=== PATIENT | female | born 1985 | race Caucasian/White ===

== ENCOUNTER 2022-02-11 10:47 | Outpatient (CLI) | payer OTHER, SELFPAY ==
--- OUTSIDE RECORDS SUMMARY | 2022-02-11 11:00 | XMS_ITS | Clinical Summary ---
:1985 Author Organization [employer] [facility] [place] [address] Care Team Providers Name Role Phone Pcp, No Unavailable Unavailable Pcp, No Primary Care Provider Unavailable Allergies No known active allergies Medications Medication Sig Dispensed Refills Start Date End Date Status NITRO-BID 2 % ointment 0 10/29/2016 Active Take 1 tablet by 0 07/31/2018 Ac tive Padzluvg-Ed-Leu-Fe-FA mouth once daily. ( VITAMIN) tab tablet Active Problems Problem Noted Date Fatigue 06/22/2015 Headache(784.0) 06/22/2015 Family History Medical History Relation Name Comments Good Health Brother Unknown Father Cancer Maternal Grandmother ovarian can cer age uncertain Good Health Mother Thyroid Disease Mother hypothyroidism Cancer Other Maternal great ovarian cancer grandma Good Health Sister Relation Name Status Comments Brother Father Maternal Grandmother Mother Other Maternal great grandma Sister Social History Tobacco Use Types Packs/Day Years Used Date Never Smoker Smokeless Tobacco: Never Used Tobacco Cessation: Counseling Given: Yes Alcohol Use Standard Drinks/Week Comments No 0 (1 standard drink = 0.6 oz pure alcoho l) Sex Assigned at Date Recorded Not on file Obstetrics History Para Term AB IAB SAB Ectopic Multiple Living Live Births 0 0 0 0 0 0 0 0 0 0 Last Filed Vital Signs Vital Sign Reading Time Taken Comments Blood Pressure 104/65 07/31/2018 2:19 PM CDT Pulse 73 07/31/2018 2:19 PM CDT Temperature 36.6 ??C (97.8 ??F) 05/08/2018 8:14 AM FRONT SIGHT ATTACHER Respiratory Rate - - Oxygen Saturation 98% 07/31/2018 2:19 PM CDT Inhaled Oxygen Concentration - - Weight 67.1 kg (148 lb) 07/31/2018 2:19 PM CDT Height 164.2 cm (5' 4.65) 05/08/2018 8:14 AM FRONT SIGHT ATTACHER Body Mass Index 24.9 05/08/2018 8:14 AM FRONT SIGHT ATTACHER Plan of Treatment Upcoming Encounters Date Type Specialty Care Team Description 03/27/2022 Office Visit Barrie Shabazz MD [address] [place] [place] [id number] (Wo rk) Health Maintenance Due Date Last Done Comments COVID-19 vaccine series (#1) 02/06/1986 Tdap 1996 HIV for age 15-65 2000 Hepatitis C screening for age 18-79 08/08/2003 Tetanus booster 2005 BMI (ht and wt on same day) for age 0305/09/2019 05/08/2018, 01/06/2017, 18+ 06/22/2015 Depression screening for age 12+ 05/09/2019 05/08/2018, Influenza for age 9-49 11/08/2021 Pap test for age 21-65 04/27/2023 04/27/2020, 04/27/2020 Results Not on filefrom Last 3 Months Insurance Payer Benefit Plan / Subscriber ID Effective Dates Phone Addre ss Type Group [employer] [place] [id number] 2018-Present [employer]/ [address] [place] [address] Care Teams Liability Claims Representative Relationship Specialty Start Date End Date Pcp, No PCP - General 03/07/18 . Pcp, No 06/20/15 .
[2022-02-11 13:47] LABS: Basophils Percent Auto 0.6 % (0.0-3.0); Hematocrit 38.8 % (33.0-51.0); Hemoglobin* 12.8 gm/dL (12.0-16.0); Immature Granulocytes Pct Auto 0.2 %; Lymphocytes Percent Auto 34.7 % (20-44); Mean Corpuscular HGB Conc 33 gm/dL (32-36); Mean Corpuscular Hemoglobin 29 pg (26-34); Mean Corpuscular Volume 89 fL (80-100); Neutrophils Percent Auto 50.5 % (42.0-72.0); Platelet Count* 228 K/uL (140-440); RDW Coefficient of Variation % 11.8 % (11.5-15.5); Red Blood Count 4.35 m/uL (4.00-5.20)
[2022-02-11 13:58] LABS: Chloride* 106 mmol/L (96-114); Potassium* 4.7 mmol/L (3.6-5.1); Sodium* 140 mmol/L (135-149)
[2022-02-11 13:59] LABS: Slide Review Reflex No; White Blood Count* 5.44 K/uL (4.50-11.00)
[2022-02-11 14:00] LABS: Creatinine* 0.6 mg/dL (0.5-1.5); Estimated Glomerular Filt Rate 119 ml/min
[2022-02-11 14:01] LABS: Blood Urea Nitrogen* 16 mg/dL (5-24); Calcium* 9.4 mg/dL (8.4-10.6); Carbon Dioxide* 28 mmol/L (20-32); Creatine Kinase* 35 U/L (41-117); Glucose* 81 mg/dL (60-115)
[2022-02-11 14:27] LABS: Erythrocyte SedimentationRate* 25 mm/hr (2-20)
[2022-02-12 22:16] LABS: Rheumatoid Factor <10 IU/mL (0-14)
[2022-02-13 12:13] LABS: Anti-Nuclear Ab(ANA)IgG ELISA None Detected (None Detected)
== END 2022-02-11 10:48 | disposition home or self-care (01) ==
PROVIDERS: PCP Family Medicine; Visit Provider Family Medicine
DX: M25.50 Pain in unspecified joint (principal)
CPT/HCPCS: 80048; 82550; 84443; 85025; 85651; 86039; 86431

== ENCOUNTER 2022-03-12 10:26 | Outpatient (CLI) | payer OTHER, SELFPAY ==
[2022-03-12 14:30] LABS: Uric Acid* 4.7 mg/dL (2.2-8.4)
[2022-03-12 14:33] LABS: C Reactive Protein* 0.7 mg/dL (0.5-1.0)
[2022-03-14 22:54] LABS: Parvovirus B19 Antibody IgM 1.55 IV (<=0.90)
== END 2022-03-12 10:27 | disposition home or self-care (01) ==
PROVIDERS: PCP Family Medicine; Visit Provider Family Medicine
DX: M25.50 Pain in unspecified joint (principal)
CPT/HCPCS: 84550; 86140; 86200; 86618; 86747

== ENCOUNTER 2022-09-13 11:58 | Outpatient (RCR) | payer OTHER, SELFPAY ==
--- NOTE | 2022-05-28 10:29 | PT.OPDNX ---
PT [facility] Daily [facility] PT [facility] Daily Note Start: 01/21/22 10:29 Freq: Status: Active Protocol: Document 05/27/22 14:52 ARR (Rec: 05/27/22 16:05 ARR [id number]) E-signed By Belinda Richards DPT PT OP Daily Progress Note Visit Information Note Type Daily Note,Recert/Progress Note Visit Number 11 Insurance Information Insurance Name Other; See Comments Insurance Information/Comments Juany Sandy POC: 01/21/22-05/27/22 x 11 visits NEW POC x 7 visits (Total 18 visits) Medical Diagnosis K59.09 other constipation M62.89 other specified disorders of muscle Treating Diagnosis K59.00 Constipation, unspecified Abdominal pain (R10.9) R10.2 Pelvic and perineal pain Referring MD Max Heath MD ([facility]) Subjective Subjective -Overall doing well. Between 4 -5 type. Hasn't changed anything in diet. Since last session it has been this stool type. Going 1-2x/day. Hasn't had to strain as hard with these mvmt -Colonoscopy 05/31/22 Home Exercise Home Exercise Comments OTHER: -Colon massage 01/21 -Constipation handout (Focus on hydration 1 C / bowel routine / chewing food / eating breakfast) 01/21 -Defecation mechanics and technique 01/21 GOALS: - Continue with hydration - Slow down eating and CHEW your food - Abdominal massage - 5 minutes of pumping time dedicated to relaxation and deep breathing ? find music or podcast - Meal prep for dinners - Implementing belly big belly hard. Defecation mechanics for bowel movement - Exercises: 5-7x/week, 1x/day -Emergency Care Tech referral Access Code: [email or web address] URL: [email or web address]/ Date: 02/20/2022 Prepared by: Belinda Richards Exercises Sidelying Thoracic and Shoulder Rotation - 1 x daily - 5-7 x weekly - 6-8 reps Sidelying Diaphragmatic Breathing - 1 x daily - 5-7 x weekly - 6-8 reps Supine Piriformis Stretch - 1 x daily - 5-7 x weekly - 2-3 reps - 30 sec hold Objective Other/Pertinent Objective INTERNAL EXAMINATION INTRAVAGINAL 01.30: -Sensation: intact to touch -Perineum: elevated (concave) -Lifting contraction: slight lift -Bulge: nil Inc'd tone with TTP greatest over PB tissue -Introidus: -Layer 1: bulbospongiousus / superficial transverse perineal -Layer 2: External urtethral sphincter / deep transverse perineal / sphincter urethrovaginalis Strength ( R / C / L): -Power (MMT): 2 -Endurance: 5 -Reps:2 -Fast twitch: not assessed -Relaxation of PFM after quick contractions: delayed -Brink score: squeeze pressure 3, muscle contraction duration 4, lift 3. With contraction noting greater squeeze vs lift of PFM INTRA-RECTAL -EAS good squeeze -Slight restrictions in tissue lower 1/2 of clock position -No significant pain -With relaxation for bowel simulation noting PFC/EAS contraction vs relaxation Patient Instructed in Risks/Benefits Yes Manual Therapy Techniques Manual Therapy Minutes (minutes) 30 Manual Therapy Techniques MT: indicated for improving joint mobility, reducing tissue irritability, and improving range of motion. supine intravaginal: Hooklying intravaginal w/ consent: -STM layer 3 focused on PC including STM along mm belly from origin at posterior PS to distal attachment. Also prolonged holds at mid portion of muscle belly. -Gentle posterior PF glides with inferior glide to LA muscles -Introidal stretching with deep breathing -Intravaginal finger completing STM to scar tissue/ layers 1-2 while external thumb completing fascial mobilization to posterior triangle -Gentle rolling over scar tissue at level of PB All with deep breathing Neuromuscular Re-Ed Neuromuscular Reeducation Minutes ( 25 minutes) Neuromuscular Reeducation Comments NMR: Indicated to facilitate improved muscle firing and postural awareness through the use of tactile cues. Intravaginal with consent: -Hooklying TA on exhale x 8 reps -Hooklying TA with bent LE fallout on exhale x 8 reps ea LE -GS x 5 reps - no glut -Bridge - low back no glut -Prone GS x 8 reps pillow -Prone GS with hip extension x 6 reps ea LE Cues for inhalation for PF relaxation Treatment Minutes Timed Code Treatment Minutes 55 Total Treatment Time 55 Billing Units Manual Therapy Units 2 Neuromuscular Reeducation Units 2 Assessment/Impression Assessment/Impression Improved pelvic floor tone overall from last session with reduced TTP but still noting overall stiffness that persists. Continued with MT techniques as noted above bilaterally with greater focus L>R with tightness greatest at PC, IC, and posterior PF at 6 oclock position. Able to initiate glut strengthening/ activation and dynamic LE mvmt with core activation. Cues throughout for form and full relaxation btw reps. Skilled PT continues to be indicated. Pt had been seen for constipation, abdominal pain, pelvic/perineal pain for 11 visits from 01/21/22 to 2022 during this episode of physical therapy. Focus of therapy on pelvic floor lengthening, deep breathing, spinal mobility/ROM, improving bowel habits, reducing straining with bowel movements , and progressing to core/glut strengthening. Interventions including therapeutic exercise , manual therapy, self-care, neuromuscular re-education. Pt at this time has not yet met all short/nursing home goals and is not independent with HEP. Skilled therapy continues to be indicated at this time to reduce straining with bowel movements, improve core/glut strength, and reduce pelvic floor muscle overactivity. Pt to benefit from continued skilled therapy at a frequency of 1x/wk for an additional 7 weeks. Timeframes below reflected in extension of plan of care for an additional 6 weeks/visits. Plan of Care Physical Therapy Goals STG (within 9 weeks) 1)Patient will demonstrate ability to utilize ?belly big, belly hard technique? while properly lengthening PFM to allow improved ease of defecation without straining. 2)Pt will report at least r0% improvement in abdominal and pelvic pain for improved ease of defecation 3)Pt will initiate HEP without increased symptoms 4) Pt will report no pelvic floor muscle pain during internal palpation to allow for improved bowel emptying. LTG (within 18 weeks) 1) Pt will report bristol Stool Scale is improved to Type 4 stool to allow for improved bowel emptying / ability to hold back stool 2) Pt will be able to initiate and complete bowel movement without pain or straining. 3)Patient will be able to fully empty bowels at least 90 % of the time. 4)Pt will report at least 80% improvement in abdominal and pelvic pain for improved ease of defecation 5) Pt will report having had no hemorrhoid or fissure in at least x 4 weeks Daily Plan of Care Comments -Abdominal visceral techniques AND intravaginal STM -Add glut strengthening to HEP and progress core/gluts as able -Glut strengthening - prone hip ext GS vs excessive PFC -Goals for diet/stool softener and abdominal massage daily
== END 2022-11-20 14:09 | disposition home or self-care (01) ==
PROVIDERS: PCP Family Medicine; Visit Provider Surgery
DX: K59.09 Other constipation (principal); M62.89 Other specified disorders of muscle; R10.9 Unspecified abdominal pain; R10.2 Pelvic and perineal pain; Z51.89 Encounter for other specified aftercare
CPT/HCPCS: 97110; 97112; 97140; 97162; 97535

== ENCOUNTER 2022-12-09 08:43 | Outpatient (CLI) | payer OTHER, SELFPAY ==
--- NOTE | 2022-12-09 09:30 | CRLHL7_ITS ---
For Patients: As a result of the Century Cures Act, medical imaging exams and procedure reports are released immediately into your electronic medical record. You may view this report before your referring provider. If you have questions, please contact your health care provider. INDICATION: Diffuse abdominal pain TECHNIQUE: Axial images were obtained from the diaphragm to the pubic symphysis. Reformats were obtained in the coronal and sagittal plane. IV Contrast: 79 cc Isovue 370 Oral Contrast: None COMPARISON: None. FINDINGS: Lower chest: Minimal nodular consolidation at the left lower lobe (series 3, image 15). Liver: Unremarkable. Normal in size and attenuation. No masses. Gallbladder and bile ducts: Unremarkable. No stones or inflammation. No biliary dilatation. Spleen: Unremarkable. Normal in size without mass. Pancreas: Unremarkable. No mass or inflammation. Adrenal glands: Unremarkable. No nodules. Kidneys: Unremarkable. No masses, stones, or hydronephrosis. Vasculature: Unremarkable. GI tract: Unremarkable. No dilated bowel or focal inflammation. Normal appendix. Pelvis: Unremarkable. Bones: Unremarkable for age. IMPRESSION: 1. No dilated loops of large or small intestine. No localized inflammation. 2. Somewhat nodular opacity within left lower lobe measuring 9 millimeters. Differential would include focal atelectasis, pulmonary nodule or even early pneumonia in the correct clinical setting. Suggest follow-up study in 3 months to assess for resolution. Please note that all CT scans at this facility use dose modulation, iterative reconstruction, and/or weight-based dosing when appropriate to reduce radiation dose to as low as reasonably achievable. Dictated by Michael Tolentino MD @ 12/09/2022 10:08:35 AM (Electronically Signed)
== END 2022-12-09 08:44 | disposition home or self-care (01) ==
PROVIDERS: PCP Family Medicine; Visit Provider Internal Medicine
DX: R10.84 Generalized abdominal pain (principal)
CPT/HCPCS: 74177; Q9967

== ENCOUNTER 2023-03-27 09:40 | Outpatient (CLI) | payer OTHER, SELFPAY ==
--- OUTSIDE RECORDS SUMMARY | 2023-03-27 09:45 | XMS_ITS | Clinical Summary ---
Author Name Unknown Organization [employer] Address [place], [place] [address] Care Team Providers Care Electric Sealing Machine Operator Name Role Phone Pcp, No Unavailable Unavailable Michael Davis MD Primary Care Provider + Allergies No known active allergies Medications Medication Sig Dispensed Refills Start Date End Date Status hydrocortisone (ANUSOL-HC SUPPOSITORY) 25 mg suppository twice a day 0 12/12/2021 Active Active Problems Problem Noted Date Diagnosed Date Fatigue 06/22/2015 Headache(784.0) 06/22/2015 Family History Medical History Relation Name Comments Good Health Brother Unknown Father Cancer Maternal Grandmother ovarian cancer age uncertain Good Health Mother Thyroid Disease Mother hypothyroidi sm Cancer Other Maternal great grandma ovarian cancer Good Health Sister Relation Name Status Comments Brother Father Maternal Grandmother Mother Other Maternal great grandma Sister Social History Tobacco Use Types Packs/Day Years Used Date Smoking Tobacco: Never Smokeless Tobacco: Never Tobacco Cessation:Counseling Given: Yes Alcohol Use Standard Drinks/Week Comments No 0 (1 standard drink = 0.6 oz pur e alcohol) PHQ-2 Answer Date Recorded PHQ-2 Score 0 05/12/2018 Social Connections Answer Date Recorded Frequency of Communication with Friends and Fami ly Not on file 03/27/2022 Sex and Gender Information Value Date Recorded Sex Assigned at Not on file Gender Identity Not on file Sexual Orientation Not on file Obstetrics History Para Term AB IAB SAB Ectopic Multiple Livin g Live Births 0 0 0 0 0 0 0 0 0 0 Last Filed Vital Signs Vital Sign Reading Time Taken Comments Blood Pressure 101/68 03/27/2022 3:01 PM CUTTER HAND Pulse 60 03/27/2022 3:01 PM CUTTER HAND Temperature 36.6 ??C (97.8 ??F) 05/08/2018 8:14 AM CS T Respiratory Rate - - Oxygen Saturation 97% 03/27/2022 3:01 PM CUTTER HAND Inhaled Oxygen Concentration - - Weight 68 kg (150 lb) 03/27/2022 3:01 PM CUTTER HAND Height 164.2 cm (5' 4.65) 05/08/2018 8:14 AM CS T Body Mass Index 25.24 05/08/2018 8:14 AM CUTTER HAND Plan of Treatment Health Maintenance Due Date Last Done Comments Tdap 1996 HIV for age 15-65 2000 Hepatitis C screening for ag e 18-79 08/08/2003 Tetanus booster 2005 BMI (ht and wt on same day) for age 18+ 05/09/2019 05/08/2018, 01/06/2017, 06/22/2015 Depression screening for age 12+ 05/09/2019 05/08/2018, 06/22/2015 COVID-19 vaccine series ( season) 2022 10/16/2021, 09/25/2021 Influenza for age 9-49 11/08/2022 Pap test for age 21-65 04/27/2023 , 04/27/2020 Pneumococcal series for age 6-64 Aged Out No longer eligible b ased on patient's age to complete this topic Care Teams Electric Sealing Machine Operator Relationship Specialty Start Date End Date Michael Davis MD [address] [place] [address] PCP - General Family Practice 03/27/22 Pcp, No . 06/20/15
--- NOTE | 2023-03-27 10:00 | CRLHL7_ITS ---
For Patients: As a result of the Century Cures Act, medical imaging exams and procedure reports are released immediately into your electronic medical record. You may view this report before your referring provider. If you have questions, please contact your health care provider. Indication: PULMONARY NODULE Technique: Noncontrast CT chest Please note that all CT scans at this facility use dose modulation, iterative reconstruction, and/or weight-based dosing when appropriate to reduce radiation dose to as low as reasonably achievable. Comparison: CT abdomen and pelvis 12/09/2022 Findings: Stable nodular density within the left lower lobe measuring 10 x 7 millimeters. No pleural effusion or pulmonary edema. No adenopathy or pneumothorax. No fracture. Breast tissue normal. Unremarkable upper abdomen. Impression: Stable morphology of the 10 millimeter nodule in the left lower lobe adjacent to the left hemidiaphragm. Follow-up CT chest in 1 year recommended. Please note that all CT scans at this facility use dose modulation, iterative reconstruction, and/or weight-based dosing when appropriate to reduce radiation dose to as low as reasonably achievable. Dictated by Michael Bustos MD @ 03/27/2023 12:31:37 PM (Electronically Signed)
== END 2023-03-27 09:41 | disposition home or self-care (01) ==
LOC: CT 09:42
PROVIDERS: PCP Family Medicine; Visit Provider Internal Medicine
DX: R91.1 Solitary pulmonary nodule (principal)
CPT/HCPCS: 71250

== ENCOUNTER 2023-10-02 08:03 | Outpatient (CLI) | payer OTHER, SELFPAY | END 2023-10-02 08:04 | disposition home or self-care (01) | PROVIDERS: PCP Family Medicine; Visit Provider Obstetrics & Gynecology | DX: Z31.41 Encounter for fertility testing (principal) | CPT/HCPCS: 82670; 83001; 83002 ==

== ENCOUNTER 2024-09-15 08:55 | Outpatient (CLI) | payer OTHER, SELFPAY ==
--- NOTE | 2024-09-15 09:15 | CRLHL7_ITS ---
For Patients: As a result of the Cures Act, medical imaging exams and procedure reports are released immediately into your electronic medical record. You may view this report before your referring provider. If you have questions, please contact your health care provider. OB ULTRASOUND INDICATION: Dating and viability. TECHNIQUE: Real time grayscale imaging of the fetus was performed. Transvaginal. LMP: 07/15/2024. TREVON by LMP: 04/21/2025. GA: 8 w, 6 d. Previous US: No. CRL: 2.3 cm. 9 w 0 d. TREVON: 04/20/2025. FHR: 167 BPM. Gestational sac: 4.3 cm. Appears within normal limits. Yolk sac: 3.0 mm. Appears within normal limits. Right ovary: 2.7 x 1.2 x 2.1 cm. Left ovary: 3.0 x 1.8 x 2.2 cm. CL. IMPRESSION: Single living intrauterine measuring 9 weeks 0 days with sonographic due date 04/20/2025. Michael Bustos M.D. Diagnostic Radiologist [email or web address]/Dictated by: Michael Bustos MD @ 09/15/2024 9:55:00 AM (Electronically Signed)
== END 2024-09-15 08:56 | disposition home or self-care (01) ==
LOC: US 08:56
PROVIDERS: PCP Family Medicine; Visit Provider Registered Nurse
DX: Z34.91 Encounter for supervision of normal pregnancy, unspecified, first trimester (principal); Z3A.09 9 weeks gestation of pregnancy
CPT/HCPCS: 76817; 83021; 86592; 86703; 86704; 86706; 86762; 86787; 86803; 86850; 87086; 87340; 87491; 87591

== ENCOUNTER 2024-11-11 06:41 | Outpatient (CLI) | payer OTHER, SELFPAY | END 2024-11-11 06:42 | disposition home or self-care (01) | LOC: AMB 11-12 09:06 | PROVIDERS: PCP Family Medicine; Visit Provider Emergency Medicine | DX: R07.89 Other chest pain (principal) | CPT/HCPCS: A0425; A0433 ==

== ENCOUNTER 2024-11-11 07:20 | Emergency (ER) | payer OTHER, SELFPAY ==
--- OUTSIDE RECORDS SUMMARY | 2024-11-11 07:22 | XMS_ITS ---
Author Organization [facility] Source Produ ction (ClinicalSummary Clone) Address Unknown Care Team Providers Care License Inspector Name Role Phone Unavailable Primary Care Physician Unavailab le Results * [UNITY] ANEUPLOIDY NIPT Performed by: [employer] Component Value Range Date Fraction 8.0% 10/06/2024 03 :07 am UT Rh(D) NIPT RhD DETECTED 10/06/2024 03:0 7 am UT 22q11.2 Microdeletion LOW RISK <1 in 10,000 10/06/2024 03:07 am UT Sex Chromosome Aneuploidy NOT DETECTED 03:07 am UT Monosomy X LOW RISK <1 in 10,000 2024 03:07 am UTC Trisomy 13 LOW RISK <1 in 10,000 2024 03:07 am UTC Trisomy 18 LOW RISK <1 in 10,000 2024 03:07 am UTC Trisomy 21 LOW RISK <1 in 10,000 2024 03:07 am UT Sex FEMALE 10/06/2024 03:0 7 am UTC Gestation FITCH 10/07/19 03:07 am UT For detailed report, see PDF See PDF 10/06/2024 03:07 am UTC 10/06/2024 03:0 7 am UT Social History Observation Value Start Date End Date
--- OUTSIDE RECORDS SUMMARY | 2024-11-11 07:22 | XMS_ITS | CCD ---
Author Name Interface, [id number] lity Address [address] [place] [address] [facility] Oncology Address [facility] [address] Reason for Visit Social History
--- OUTSIDE RECORDS SUMMARY | 2024-11-11 07:23 | XMS_ITS | Clinical Summary ---
[facility] Organization [facility] Address [address] [address] Care Team Providers Care Ore Smelter Name Role Phone Needs Pcp, Assignment Primary Care Provider Source Comments You are receiving this document as you are listed as the primary care provider,follow-up provider, or the patient has been referred to you for consultation.This is in compliance with the Medicare andMedicaid EHR Incentive Program,which states Providers who transition their patient to another setting of careor provider of care or refers their patient to another provider of care shouldprovide summary care record for each transition of care or referral. [facility] Allergies No known active allergies Medications vitamin-ferrous fumarate-folic acid (PRENATALPLUS) 27-1 MG tablet Take 1 Tablet by mouth daily. Active letrozole (FEMARA) 2.5 MG tabletIndicatio ns:Family planning Take 1 Tablet (2.5 mg) by mouth daily. Day one is the first day of red bleeding. Take letrozole days three through seven. 5 Tablet 5 Active Active Problems Problem Noted Date Diagnosed Date Encounter for artificial insemination 03/20/2024 Irritable bowel syndrome wit h both constipation and diarrhea 05/14/2016 Overview (05/14/2016): Records in scanned documents. Saw GI, had colonoscopy in 2012 - unremarkable. EGD with localized mild erythematous mucosa without bleeding. Had small bowel enteroscopy with extensive biopsies which was negative. Had hydrogen and methane breath test which was positive for hydrogen. Treated with 10 day course of rifaximin with improved sx. Resolved Problems Problem Noted Date Diagnosed Date Resolved Date Infertility, female, secondary 03/20/2024 03/20/2024 Encounters Date Type Department Care Team Description 08/13/2024 Telephone [place] [id number] Obstetrics/Gynecology [address] [place] [address] Elisa Massey MD QUESTIONS, GENERAL; Concerns from Last 3 Months Immunizations Immunization Administration Dates Next Due Influenza IIV4 (Quadrivalent) 0.5mL (20241) 08/2020 Pfizer Monovalent 12+ Purple Top 10/16/2021,09/07 Tdap 05/22/2021 Family History Medical History Relation Name Comments Unknown Father Thyroid Disorder Mother No Known Problems Brother No Known Problems Daughter Gweneviere Unknown Maternal Grandfather Cancer, Ovary Maternal Grandmother Unknown Paternal Grandfather Unknown Paternal Grandmother Kidney Disorder Sister Relation Name Status Comments Father Unknown Mother Alive Brother Alive Daughter Gweneviere Alive Maternal Grandfather Unknown Maternal Grandmother Alive Paternal Grandfather Unknown Paternal Grandmother Unknown Sister Alive Social History Tobacco Use Types Packs/Day Years Used Date Smoking Tobacco: Never Smokeless Tobacco: Never Tobacco Cessation:Counseling Given: Not Answered Alcohol Use Standard Drinks/Week Comments Not Currently 0 (1 standard drink = 0.6 oz pur e alcohol) Comments No Sex and Gender Information Value Date Recorded Sex Assigned at Not on file Legal Sex Female 2:20 PM CDT Gender Identity Not on file Sexual Orientation Not on file Occupation Industry Job Start Date Job End Date - [employer] Not on file Not on file No t on file Last Filed Vital Signs Vital Sign Reading Time Taken Comments Blood Pressure 103/75 05/21/2024 1:39 PM CDT Pulse 68 05/21/2024 1:39 PM CDT Temperature 36.8 C (98.3 F) 05/18/2024 2:35 PM CDT Respiratory Rate 16 05/18/2024 2:35 PM CDT Oxygen Saturation 98% 05/18/2024 2:35 PM CDT Inhaled Oxygen Concentration - - Weight 75.8 kg (167 lb) 05/21/2024 1:39 PM CDT Height - - Body Mass Index - - Plan of Treatment Health Maintenance Due Date Last Done Comments Cervical Cancer Screening Due 1985 Hep C Screening (Preventive Services) 1985 HIV Screening (Preventive Services) 2001 Adult Preventive Visit 08/08/2003 HepB Vaccine (1) 2004 HPV Vaccine (1 - 3-dose SCDM series) 2012 COVID-19 Vaccine (3 - 2023-2 5 season) 2023 10/16/2021, 09/25/2021 Influenza Vaccine (#1) 2024 02/12/2021 DTaP/Tdap/Td Vaccine (2 - Tdap) 05/23/2031 05/22/2021 Zoster/Shingles Vaccine (1 o f 2) 08/08/2035 HepA Vaccine Aged Out No longer eligi ble based on patient's age to complete this topic Hib Vaccine Aged Out No longer eligi ble based on patient's age to complete this topic IPV (Polio) Vaccine Aged Out No longe r eligible based on patient's age to complete this topic MCV4 Vaccine Aged Out No longer eligi ble based on patient's age to complete this topic Meningococcal B Vaccine Aged Out No l onger eligible based on patient's age to complete this topic Pneumococcal Vaccine Aged Out No long er eligible based on patient's age to complete this topic Insurance [facility] Care Teams Ore Smelter Relationship Specialty Start Date End Date Needs Pcp, [place] [address] PCP - General 04/11/16
[2024-11-11 07:24] VITALS: BP 116/76; PULSE 64; RESP 16; TEMP 36.8; O2SAT 99; BMI 29.2
--- OUTSIDE RECORDS SUMMARY | 2024-11-11 07:24 | XMS_ITS ---
Author Organization [facility] Source Produ ction (ClinicalSummary Clone) Address Unknown Care Team Providers Care Nutrition Educator Name Role Phone Unavailable Primary Care Physician Unavailab le Results * [UNITY] CARRIER SCREEN Performed by: [employer] Component Value Range Date Sickle Cell Disease/Beta-Thalassemia/Hemo globinopathies carrier screen NEGATIVE 10/12/2024 06:51 am UT Alpha-Thalassemia carrier screen NEGATIVE 10/12/2024 06:51 am UT Cystic Fibrosis carrier screen NEGATIVE 10/12/2024 06:51 am UT Spinal Muscular Atrophy carrier screen NEGATIVE 2 SMN1 copies, SNP not present 10/12/2024 06:51 am UT For detailed report, see PDF See PDF 10/12/2024 06:51 am UTC 10/12/2024 06:5 1 am [facility] Social History Observation Value Start Date End Date
--- OUTSIDE RECORDS SUMMARY | 2024-11-11 07:24 | XMS_ITS | Clinical Summary ---
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 Gender Identity Not on file Sexual Orientation Not on file Obstetrics History Para Term AB IAB SAB Ectopic Multiple Livin g Live Births 0 0 0 0 0 0 0 0 0 0 Last Filed Vital Signs Vital Sign Reading Time Taken Comments Blood Pressure 101/68 03/27/2022 3:01 PM PRODUCTION ASSEMBLY SUPERVISOR Pulse 60 03/27/2022 3:01 PM PRODUCTION ASSEMBLY SUPERVISOR Temperature 36.6 C (97.8 F) 05/08/2018 8:14 AM PRODUCTION ASSEMBLY SUPERVISOR Respiratory Rate - - Oxygen Saturation 97% 03/27/2022 3:01 PM PRODUCTION ASSEMBLY SUPERVISOR Inhaled Oxygen Concentration - - Weight 68 kg (150 lb) 03/27/2022 3:01 PM PRODUCTION ASSEMBLY SUPERVISOR Height 164.2 cm (5' 4.65) 05/08/2018 8:14 AM CS T Body Mass Index 25.24 05/08/2018 8:14 AM PRODUCTION ASSEMBLY SUPERVISOR Plan of Treatment Health Maintenance Due Date Last Done Comments Tetanus booster 1996 HIV for age 15-65 2000 Hepatitis C screening for ag e 18-79 08/08/2003 Hepatitis B series for 19+ ( 1 of 3 - 19+ 3-dose series) 2004 BMI (ht and wt on same day) for age 18+ 05/09/2019 05/08/2018, 01/06/2017, 06/22/2015 Depression screening for age 12+ 05/09/2019 05/08/2018, 06/22/2015 Pap test for age 21-65 04/27/2023 , 04/27/2020 COVID-19 vaccine series (2024- season) 2024 10/16/2021, 09/25/2021 Influenza Vaccine (#1) 2024 RSV vaccine for adults or (1 - 1-dose 75+ series) 2060 Pneumococcal series for age 6-49 Aged Out No longer eligible b ased on patient's age to complete this topic Procedures Procedure Name Priority Date/Time Associated Diagnosis Comments MEDICAL RECORD RETRIEVAL SPECIALIST THIN PREP PAP SCREEN IMAGED Routine 04/27/2020 1:25 PM PRODUCTION ASSEMBLY SUPERVISOR from Last 3 Months or Most Recently Relevant to Health Maintenance Results * MEDICAL RECORD RETRIEVAL SPECIALIST THIN PREP PAP SCREEN IMAGED (04/27/2020 1:25 PM PRODUCTION ASSEMBLY SUPERVISOR) Case Report Gynecologic Cytology Report Case: [id number] Authorizing Provider: Roopa Culver Collected: 04/27/2020 1325 MD Jennifer Ordering Location: [facility] Received: 05/01/2020 0837 First Screen: Michael Mcdonnell Specimen: MEDICAL RECORD RETRIEVAL SPECIALIST ThinPrep Vial Screening, Cervical/Vaginal 05/08/2020 3:48 PM PRODUCTION ASSEMBLY SUPERVISOR [facility] INTERPRETATION/ RESULT NEGATIVE FOR INTRAEPITHELIAL LESION OR MALIGNANCY (NIL) (none) 05/08/2020 3:48 PM PRODUCTION ASSEMBLY SUPERVISOR [facility] at 1548 PRODUCTION ASSEMBLY SUPERVISOR SPECIMEN ADEQUACY Satisfactory for evaluation Endocervical component present 05/08/2020 3:48 PM PRODUCTION ASSEMBLY SUPERVISOR [facility] HPV REQUEST HPV and PAP 05/08/2020 3:48 PM PRODUCTION ASSEMBLY SUPERVISOR [facility] Date of LMP 04/12/2020 05/08/2020 3:48 PM PRODUCTION ASSEMBLY SUPERVISOR [facility] Last Pap Date 05/08/2020 3:48 PM PRODUCTION ASSEMBLY SUPERVISOR [facility] Comment:Unknown Additional Information 05/08/2020 3:48 PM PRODUCTION ASSEMBLY SUPERVISOR [facility] Comment: Interpreted at [facility] - [address], [place] [address] Automated Review Successful 05/08/2020 3:48 PM PRODUCTION ASSEMBLY SUPERVISOR [facility] Comment:Specimen processed s uccessfully by automated medical technologist chemistry device, ThinPrep Imaging System, [employer] ANCILLARY TESTING MEDICAL RECORD RETRIEVAL SPECIALIST HPV Ordered, Please see separate report 05/08/2020 3:48 PM PRODUCTION ASSEMBLY SUPERVISOR [facility] Note The pap test is a screening technique, not a diagnostic procedure. It is used primarily to screen for squamous cancers and precursor lesions. Published studies have shown that it is subject to both false negative and false positive results. The pap test should not be used as the sole means to diagnose or exclude pre-malignant and malignant lesions. 05/08/2020 3:48 PM PRODUCTION ASSEMBLY SUPERVISOR [facility] Other (Cervical/Vagina l) 04/27/2020 1:25 PM PRODUCTION ASSEMBLY SUPERVISOR 05/01/2020 8:37 AM PRODUCTION ASSEMBLY SUPERVISOR Roopa Culver MD PATHOLOGY/CYTOLOGY Final Result [facility] [address] [place] [address], [place] from Last 3 Months or Most Recently Relevant to Health Maintenance Care Teams Metal Washing Machine Operator Relationship Specialty Start Date End Date Michael Davis MD [address] [place] [address] PCP - General Family Practice 03/27/22 Pcp, No . 06/20/15
[2024-11-11 07:45] VITALS: O2SAT 99
--- NOTE | 2024-11-11 08:17 | ED_ITS ---
HPI - Chest Pain General Time Seen by Provider: 07:58 Date Seen: 11/11/24 Chief Complaint: Chest Pain Stated Complaint: Chest pain Time Seen by Provider: 11/11/24 08:17 Source: patient, family and RN notes reviewed Mode of arrival: EMS Limitations: no limitations History of Present Illness HPI narrative: Danielle is a 39-year-old female at approximately 17 weeks (due date of 04/21/2025) with history of spontaneous AB at approximately 7 weeks who comes to the emergency room via EMS for evaluation regarding back chest pain and shortness of breath. Patient notes that awaking this morning she felt like she had a sore back. She describes the soreness in the area of the upper thoracic vertebrae on the right between her shoulder blades. As she began to move about the house at this area suddenly became very tight and she notes that it was hard to catch her breath and hard to breathe. She notes that the discomfort did wrap around to the front part of her chest. This lasted a full 30 minutes until she called 911. EMS did give her aspirin and normal vital signs were noted. At this point when I see her in the emergency room the tightness is gone but she still feels ?a spot in her back. She is not having any difficulty breathing. At this time at rest patient really has no discomfort. However if she moves or stands up she can elicit the discomfort that she was feeling earlier. Patient has not been ill lately with cough cold congestion vomiting diarrhea. She has not had any ill exposures that she knows of. She has never had discomfort like this in the past. She denies history or family history of PE. She denies lower extremity edema, calf pain recent extended car rides or airplane trips. This has been healthy with no spotting or cramping. She states she occasionally has some mild round ligament pain but otherwise everything else has been normal. She denies any recent falls or trauma. She also denies any recent heartburn issues. Related Data Home Medications ?Medication ?Instructions ?Recorded ?Confirmed No Known Home Medications 11/09/2405/04 Allergies Allergy/AdvReac Type Severity Reaction Status Date / Time No Known Drug Allergies Allergy Verified 11/09/24 09:10 Review of Systems Status of ROS Reports: 10 or more systems reviewed and unremarkable except as noted in History and below Const Denies: fever or chills Eyes Denies: change in vision ENMT Denies: throat pain, neck pain or nasal congestion Cardio Reports: chest pain and shortness of breath with exertion; Denies: palpitations, edema or swelling of feet/ankles Resp Reports: shortness of breath; Denies: cough GI Denies: abdominal pain, nausea, vomiting or diarrhea Denies: painful urination or urinary frequency Musculo Reports: back pain; Denies: neck pain, extremity pain or extremity swelling Integ/Breast Denies: rash Neuro Denies: weakness in extremities [facility] Medical History 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.3 - Parvovirus infection, unspecified (ICD-10) ?M01.X9 - Direct infection of multiple joints in infectious and parasitic diseases classified elsewhere (ICD-10) COVID-19 virus infection ?U07.1 - COVID-19 (ICD-10) Acute anal fissure ?K60.0 - Acute anal fissure (ICD-10) Chronic constipation ?K59.09 - Other constipation (ICD-10) Thrombosed external hemorrhoid ?K64.5 - Perianal venous thrombosis (ICD-10) Ruptured ovarian cyst ?N83.209 - Unspecified ovarian cyst, unspecified side (ICD-10) Irritable bowel syndrome ?K58.9 - Irritable bowel syndrome without diarrhea (ICD-10) Surgical History Normal spontaneous vaginal delivery (07/17/21) ?O80 - Encounter for full-term uncomplicated delivery (ICD-10) History of photorefractive keratectomy (PRK) (2011) ?Z98.890 - Other specified postprocedural states (ICD-10) Family History Maternal Grandmother Ovarian cancer Other Hypothyroidism Social History Narrative: 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, 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, 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) , 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, 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 Non-smoker Rarely consumes alcohol What is your current living situation?: I presently have a place to live In the past 12 months, utilities in danger of being shut off: no In past 12 months, lack of transportation kept you from medical appts, meetings, work, or getting things needed for daily living: no In the past 12 mos, have been you worried that your food would run out before you had money to buy more?: never true In the past 12 mos, the food you bought just didn't last and you didn't have money to buy more?: never true Smoking Status: Never smoker How often does anyone, including family, friends and others, physically hurt you : never How often does anyone, including family, friends and others, insult or talk down to you: never How often does anyone, including family, friends and others, threaten you with harm: never How often does anyone, including family, friends and others, scream or curse at you: never Exam Narrative Exam Narrative: Alert and oriented. Mentation speech interactions normal. present very loving and supportive. Face symmetrical, neck is supple, heart with regular rate and rhythm. Lungs clear bilaterally. No wheezes are auscultated. Chest wall without abnormality. No bruising. Heart with regular rate and rhythm. I do not auscultate any additional heart sounds murmurs or rubs. Abdomen is soft nontender. No pain in right upper quadrant palpation. Lower extremities with no lower extremity edema no calf tenderness, negative Homans sign. Pedal pulses dorsalis pedis, posterior tibial are strong and symmetrical. No unusual discoloration. Extremities are warm. I do have patient sit up. Her back examination was without evidence of ecchymosis or rash. Palpation down the thoracic and lumbar spine without discomfort. There is an area on the left paraspinous musculature at approximately T4-T5/interscapular that is tender on the left. On the right there is no tenderness where she has been feeling the discomfort. Moving all extremities and ambulating without difficulty. Const Vital Signs, click to edit/add: Vital Signs - 24 hr 11/11/24 07:24 11/11/24 07:45 Temperature 98.3 F Pulse Rate [Pulse Oximeter] 64 Respiratory Rate 16 Blood Pressure [Left Upper Arm] 116/76 Pulse Oximetry 99 99 Oxygen Delivery Method Room Air Documenting provider has reviewed patient's vital signs: yes Course Course ED Course: Differential diagnosis includes but is not limited to pericarditis, acute coronary syndrome, angina, PE, pneumothorax, aortic dissection, pneumonia, radiculitis, musculoskeletal pain, biliary colic with referred pain and reflux. Patient noted to be improved especially at rest. of course would increase risk of hypercoagulable state but patient has no calf tenderness, risk factors for DVT or PE and has a normal pulse and oximetry levels at this time. EKG is noted to show sinus rhythm with no acute changes. I am suggesting at this time a chest x-ray, labs to include CBC, comprehensive panel, EKG EKG, troponin, urinalysis. 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 Did speak of risks of radiation especially in . Patient her appear to be in agreement with our plan. Will plan on shielding during x- ray. D-dimer initially ordered but canceled in light of current , normal vital signs, no other risk factors for DVT PE. Reevaluation(s) Reevaluation #1: Patient notes that she still can feel discomfort in her back and seems to be more prominent when she is sitting up. Pain is better overall. She did have breakfast. Vital Signs Vital signs: Initial Vital Signs Temperature 98.3 F 11/11/24 07:24 Temperature Source Temporal Artery Scan 11/11/24 07:24 Pulse Rate 64 11/11/24 07:24 Respiratory Rate 16 11/11/24 07:24 Blood Pressure 116/76 11/11/24 07:24 Blood Pressure Mean 89 11/11/24 07:24 Pulse Oximetry 99 11/11/24 07:24 Oxygen Delivery Method Room Air 11/11/24 07:24 Vital Signs Temperature 98.3 F 11/11/24 07:24 Pulse Rate 64 11/11/24 07:24 Respiratory Rate 16 11/11/24 07:24 Blood Pressure 116/76 11/11/24 07:24 Pulse Oximetry 99 11/11/24 07:24 Oxygen Delivery Method Room Air 11/11/24 07:24 Temperature 98.3 F 11/11/24 07:24 Pulse Rate 64 11/11/24 07:24 Respiratory Rate 16 11/11/24 07:24 Blood Pressure 116/76 11/11/24 07:24 Pulse Oximetry 99 11/11/24 07:45 Oxygen Delivery Method Room Air 11/11/24 07:24 Medications Administered Medications: Discontinued Medications Generic Name Dose Route Start Last Admin Trade Name Corrie PRN Reason Stop Dose Admin Acetaminophen 1,000 mg 11/11/24 08:19 11/11/24 08:39 Acetaminophen 500 Mg Tablet PO 11/11/24 08:20 1,000 mg ONCE ONE Administration MDM - Chest Pain MDM Narrative Medical decision making narrative: 1. Thoracic pain-appears to be musculoskeletal. Feel like we have adequately ruled out underlying acute coronary syndrome with negative troponin x2, normal EKG. D-dimer while initially canceled was run by lab and that is normal, pedal pulses are symmetrical and thus I do not think we are dealing with aortic dissection. Pulse and oximetry are normal and thus do not feel we are dealing with PE. Chest x-ray without evidence of pneumothorax. At this time will treat as musculoskeletal cause. Patient may use Tylenol as needed for discomfort. Suggested /demonstrated exercises for upper thoracic pain. Patient noted to have some digestive issues prior to . No abdominal pain today or elevated liver function tests to suggest biliary cause but should patient develop pain in the right upper quadrant would suggest ultrasound of the gallbladder. 2. -no lower abdominal pain, spotting or contractions. 3. Disposition -home at this time. Labs were reassuring. Suggest return for worsening symptoms. Medical Records Data Attestation: I reviewed the patient's medical records. Lab Data Attestation: I reviewed the patient's lab results. Labs: Lab Results 11/11/24 11/11/24 11/11/24 Range/Units 08:00 08:18 08:20 WBC 7.99 (4.50-11.00) K/uL RBC 4.15 (4.00-5.20) m/uL Hgb 12.3 (12.0-16.0) gm/dL Hct 36.9 (33.0-51.0) % MCV 89 (80-100) fL MCH 30 (26-34) pg MCHC 33 (32-36) gm/dL RDW Coeff of Cristina 12.8 (11.5-15.5) % Plt Count 227 (140-440) K/uL Neut % (Auto) 67.7 (42.0-72.0) % Lymph % (Auto) 21.3 (20-44) % [place] % (Auto) 6.6 (0.0-11.0) % Eos % (Auto) 3.4 (0.0-7.0) % Baso % (Auto) 0.4 (0.0-3.0) % Neut # (Auto) 5.41 (1.7-7.0) K/uL Lymph # (Auto) 1.70 (0.90-2.90) K/uL [place] # (Auto) 0.50 (0.00-0.90) K/UL Eos # (Auto) 0.27 (0.00-0.50) K/uL Baso # (Auto) 0.03 (0.00-0.30) K/uL Abs Immat Gran (auto) 0.05 (0.00-0.30) K/uL Imm/Tot Granulo (auto) 0.6 % D-Dimer Quant (PE/DVT) 0.30 (0.00-0.50) ug/ml Sodium 135 (135-149) mmol/L Potassium 4.4 (3.6-5.1) mmol/L Chloride 107 (96-114) mmol/L Carbon Dioxide 24 (20-32) mmol/L Anion Gap 4 L (7-15) mEq/L BUN 7 (5-24) mg/dL Creatinine 0.6 (0.5-1.5) mg/dL Estimated Creat Clear 108.70 Estimated GFR 117 ml/min Glucose 94 (60-115) mg/dL Calcium 8.9 (8.4-10.6) mg/dL Total Bilirubin 0.4 (0.1-1.5) mg/dL AST 30 (12-35) U/L ALT 37 H (4-35) U/L Alkaline Phosphatase 75 (40-150) U/L Total Protein 6.8 (6.0-8.3) g/dL Albumin 3.6 (3.3-5.0) g/dL Urine Color Yellow (Yellow) Urine Appearance Clear (Clear) Urine pH 7.0 (5.0-8.5) Ur Specific [place] 1.010 (1.000-1.030) Urine Protein Negative (Negative) Urine Glucose (UA) Negative (Negative) Urine Ketones Negative (Negative) Urine Blood Trace-intact A (Negative) Urine Nitrite Negative (Negative) Urine Bilirubin Negative (Negative) Urine Urobilinogen 0.2 (0.2-1.0) Ur Leukocyte Esterase Negative (Negative) Urine RBC 2-5 A (0-2) Urine WBC 0-2 (0-5) Ur Squamous Epith Cells None (None-Few) Urine Bacteria None (None) POC Troponin I 0.00 L (0.01-0.04) ng/ml 11/11/24 Range/Units 11:02 WBC (4.50-11.00) K/uL RBC (4.00-5.20) m/uL Hgb (12.0-16.0) gm/dL Hct (33.0-51.0) % MCV (80-100) fL MCH (26-34) pg MCHC (32-36) gm/dL RDW Coeff of Cristina (11.5-15.5) % Plt Count (140-440) K/uL Neut % (Auto) (42.0-72.0) % Lymph % (Auto) (20-44) % [place] % (Auto) (0.0-11.0) % Eos % (Auto) (0.0-7.0) % Baso % (Auto) (0.0-3.0) % Neut # (Auto) (1.7-7.0) K/uL Lymph # (Auto) (0.90-2.90) K/uL [place] # (Auto) (0.00-0.90) K/UL Eos # (Auto) (0.00-0.50) K/uL Baso # (Auto) (0.00-0.30) K/uL Abs Immat Gran (auto) (0.00-0.30) K/uL Imm/Tot Granulo (auto) % D-Dimer Quant (PE/DVT) (0.00-0.50) ug/ml Sodium (135-149) mmol/L Potassium (3.6-5.1) mmol/L Chloride (96-114) mmol/L Carbon Dioxide (20-32) mmol/L Anion Gap (7-15) mEq/L BUN (5-24) mg/dL Creatinine (0.5-1.5) mg/dL Estimated Creat Clear Estimated GFR ml/min Glucose (60-115) mg/dL Calcium (8.4-10.6) mg/dL Total Bilirubin (0.1-1.5) mg/dL AST (12-35) U/L ALT (4-35) U/L Alkaline Phosphatase (40-150) U/L Total Protein (6.0-8.3) g/dL Albumin (3.3-5.0) g/dL Urine Color (Yellow) Urine Appearance (Clear) Urine pH (5.0-8.5) Ur Specific [place] (1.000-1.030) Urine Protein (Negative) Urine Glucose (UA) (Negative) Urine Ketones (Negative) Urine Blood (Negative) Urine Nitrite (Negative) Urine Bilirubin (Negative) Urine Urobilinogen (0.2-1.0) Ur Leukocyte Esterase (Negative) Urine RBC (0-2) Urine WBC (0-5) Ur Squamous Epith Cells (None-Few) Urine Bacteria (None) POC Troponin I 0.00 L (0.01-0.04) ng/ml Imaging Data Chest x-ray: Attestation: I have reviewed the pertinent imaging results. My impression: I do not note any acute findings Radiologist's impression: FINDINGS: Lung volumes are good. No new focal or diffuse opacities. No pulmonary edema. The left lower lobe nodule seen on CT is not visible radiographically. No pleural effusion. No pneumothorax. No pneumomediastinum. Normal cardiomediastinal silhouette. Bones: No acute findings. Mild disc space narrowing. Normal for age. IMPRESSION: Normal chest radiographs. ECG Data Attestation: I personally reviewed and interpreted this ECG as follows: ECG interpretation date: 11/11/24 Prior ECG tracings: not available for review Interpretation: EKG by my read shows sinus rhythm at a rate of 77. There is no evidence of acute ST or T-wave changes. QT intervals normal. Discharge Plan Discharge Clinical Impression: Pain in thoracic spine Patient Disposition: Home, Self-Care Condition: Improved Additional Instructions: Exercises as instructed: A tile that is rolled up on the floor and placed that behind your thoracic spine allowing her shoulders to fall to the floor. Alternatively stand flush to the wall and pushed your arms from your sides all the way up over her head. Tylenol as needed for discomfort. Follow-up with your primary for recheck if not improving. If you start developing abdominal pain heartburn we should consider looking at the gallbladder. Return as needed to the emergency room. Prescriptions: No Action No Known Home Medications Follow Up/Referrals: Mcihael Davis MD [Primary Care Provider, Family Practice] Stand Alone Forms: IS Decisionsth Info Instructions
--- NOTE | 2024-11-11 08:18 | CRLHL7_ITS ---
For Patients: As a result of the Century Cures Act, medical imaging exams and procedure reports are released immediately into your electronic medical record. You may view this report before your referring provider. If you have questions, please contact your health care provider. INDICATION: Thoracic back pain and shortness of breath COMPARISON: CT chest 03/27/2023 TECHNIQUE: PA and lateral 2 view chest. FINDINGS: Lung volumes are good. No new focal or diffuse opacities. No pulmonary edema. The left lower lobe nodule seen on CT is not visible radiographically. No pleural effusion. No pneumothorax. No pneumomediastinum. Normal cardiomediastinal silhouette. Bones: No acute findings. Mild disc space narrowing. Normal for age. IMPRESSION: Normal chest radiographs. Dictated by Parvin Little MD @ 11/11/2024 8:43:34 AM (Electronically Signed)
[2024-11-11 08:30] LABS: Chloride* 107 mmol/L (96-114)
[2024-11-11 08:31] LABS: Albumin* 3.6 g/dL (3.3-5.0); Potassium* 4.4 mmol/L (3.6-5.1); Sodium* 135 mmol/L (135-149)
[2024-11-11 08:33] LABS: Alanine Aminotransferase* 37 U/L (4-35); Anion Gap 4 mEq/L (7-15); Aspartate Amino Transferase* 30 U/L (12-35); Blood Urea Nitrogen* 7 mg/dL (5-24); Carbon Dioxide* 24 mmol/L (20-32); Creatinine* 0.6 mg/dL (0.5-1.5); Est. Creatinine Clearance* 108.70; Estimated Glomerular Filt Rate 117 ml/min; Total Protein* 6.8 g/dL (6.0-8.3)
[2024-11-11 08:34] LABS: Alkaline Phosphatase* 75 U/L (40-150); Bilirubin Total* 0.4 mg/dL (0.1-1.5); Calcium* 8.9 mg/dL (8.4-10.6); Glucose* 94 mg/dL (60-115)
[2024-11-11 08:35] LABS: Troponin, Point-of-Care* 0.00 ng/ml (0.01-0.04)
[2024-11-11 08:37] LABS: D Dimer Quantitative* 0.30 ug/ml (0.00-0.50); Hematocrit 36.9 % (33.0-51.0); Hemoglobin* 12.3 gm/dL (12.0-16.0); Immature Granulocytes Abs Auto 0.05 K/uL (0.00-0.30); Immature Granulocytes Pct Auto 0.6 %; Lymphocytes Absolute Auto 1.70 K/uL (0.90-2.90); Mean Corpuscular HGB Conc 33 gm/dL (32-36); Mean Corpuscular Hemoglobin 30 pg (26-34); Mean Corpuscular Volume 89 fL (80-100); RDW Coefficient of Variation % 12.8 % (11.5-15.5); Red Blood Count 4.15 m/uL (4.00-5.20); White Blood Count* 7.99 K/uL (4.50-11.00)
[2024-11-11 08:39] LABS: Slide Review Reflex No
[2024-11-11] MEDS: ACETAMINOPHEN 500 MG TABLET 1000 MG PO (08:39)
[2024-11-11 08:41] LABS: Appearance Urine Clear (Clear)
--- OUTSIDE RECORDS SUMMARY | 2024-11-11 08:41 | XMS_ITS | CCD ---
Author Name Interface, [id number] lity Address [address] [place] [id number] [facility] Address [facility] [address] [address] Reason for Visit Social History Date Name Value Sex Female
--- OUTSIDE RECORDS SUMMARY | 2024-11-11 08:41 | XMS_ITS | CCD ---
Author Name Interface, [id number] lity Address [address] [place] [id number] [facility] Address [facility] [address] [address] Reason for Visit Social History Date Name Value Sex Female
[2024-11-11 11:19] LABS: Troponin, Point-of-Care* 0.00 ng/ml (0.01-0.04)
== END 2024-11-11 11:59 | disposition home or self-care (01) ==
PROVIDERS: Emergency Provider Family Medicine; PCP Family Medicine
DX: M54.6 Pain in thoracic spine (principal); R07.9 Chest pain, unspecified; Z33.1 Pregnant state, incidental
CPT/HCPCS: 36415; 71046; 80053; 81001; 84484; 85025; 85379; 93005; 94761; 99284; 99285; A9270

== ENCOUNTER 2024-12-01 09:03 | Outpatient (CLI) | payer OTHER, SELFPAY | END 2024-12-01 09:04 | disposition home or self-care (01) | LOC: US 09:03 | PROVIDERS: PCP Family Medicine; Visit Provider Obstetrics & Gynecology | DX: O09.522 Supervision of elderly multigravida, second trimester (principal); Z3A.19 19 weeks gestation of pregnancy | CPT/HCPCS: 76811 ==

== ENCOUNTER 2024-12-22 08:59 | Outpatient (CLI) | payer OTHER, SELFPAY | END 2024-12-22 09:00 | disposition home or self-care (01) | LOC: US 08:59 | PROVIDERS: PCP Family Medicine; Visit Provider Obstetrics & Gynecology | DX: Z36.2 Encounter for other antenatal screening follow-up (principal); Z3A.22 22 weeks gestation of pregnancy | CPT/HCPCS: 76816 ==

== ENCOUNTER 2025-01-05 09:46 | Outpatient (CLI) | payer OTHER, SELFPAY | END 2025-01-05 09:47 | disposition home or self-care (01) | PROVIDERS: PCP Family Medicine; Visit Provider Obstetrics & Gynecology | DX: R53.83 Other fatigue (principal); O35.09X0 Maternal care for (suspected) other central nervous system malformation or damage in fetus, not applicable or unspecified | CPT/HCPCS: 82306; 83520; 86317; 86644; 86645; 86778; 87086 ==

== ENCOUNTER 2025-01-06 07:53 | Outpatient (CLI) | payer OTHER, SELFPAY | END 2025-01-06 07:54 | disposition home or self-care (01) | LOC: NFLDREF 01-07 05:35 | PROVIDERS: PCP Family Medicine; Referring Provider Family Medicine; Visit Provider Obstetrics & Gynecology | DX: R53.83 Other fatigue (principal); Z34.92 Encounter for supervision of normal pregnancy, unspecified, second trimester | CPT/HCPCS: 80053 ==

== ENCOUNTER 2025-01-10 07:55 | Outpatient (CLI) | payer OTHER, SELFPAY | END 2025-01-10 07:56 | disposition home or self-care (01) | LOC: NFLDREF 01-20 01:44 | PROVIDERS: PCP Family Medicine; Referring Provider Family Medicine; Visit Provider Obstetrics & Gynecology | DX: O12.12 Gestational proteinuria, second trimester (principal) | CPT/HCPCS: 82570; 84156 ==

== ENCOUNTER 2025-01-26 11:45 | Outpatient (CLI) | payer OTHER, SELFPAY | END 2025-01-26 11:46 | disposition home or self-care (01) | LOC: US 11:46 | PROVIDERS: PCP Family Medicine; Visit Provider Obstetrics & Gynecology | DX: Z36.2 Encounter for other antenatal screening follow-up (principal); O09.522 Supervision of elderly multigravida, second trimester; Z3A.27 27 weeks gestation of pregnancy | CPT/HCPCS: 76816 ==

== ENCOUNTER 2025-02-02 08:46 | Outpatient (CLI) | payer OTHER, SELFPAY | END 2025-02-02 08:47 | disposition home or self-care (01) | LOC: NFLDREF 13:41 | PROVIDERS: PCP Family Medicine; Referring Provider Family Medicine; Visit Provider Obstetrics & Gynecology | DX: O26.893 Other specified pregnancy related conditions, third trimester (principal); Z67.91 Unspecified blood type, Rh negative | CPT/HCPCS: 86592; 86850; J2791 ==